=== PATIENT | male | born 2000 | race Caucasian/White ===

== ENCOUNTER 2020-08-07 17:18 | Emergency (ER) | payer SELFPAY ==
[2020-08-07 17:21] VITALS: BP 130/112; PULSE 102; RESP 16; TEMP 37; O2SAT 99; BMI 22.1
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
--- NOTE | 2020-08-07 17:51 | ECG_ITS ---
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 Measurements Intervals [place] Rate: 77 P: 59 MO: 149 QRS: 75 QRSD: 107 T: 66 QT: 348 QTc: 394 Interpretive Statements SINUS RHYTHM WITH SINUS ARRHYTHMIA POSSIBLE LEFT ATRIAL ENLARGEMENT [-0.1mV P WAVE IN V1/V2] INDETERMINATE AXIS INCOMPLETE RIGHT BUNDLE BRANCH BLOCK [90+ ms QRS DURATION, TERMINAL R IN V1/V2, 40+ ms S IN I/aVL/V4/V5/V6] Compared to ECG 10/31/2018 20:06:05 Incomplete right bundle-branch block now present Myocardial infarct finding now present Sinus tachycardia no longer present Early repolarization no longer present Electronically Signed On 08-09-2020 17:28:12 [employer] by Madhuri Santana M.D. [id number]
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
[2020-08-07 18:05] VITALS: BP 111/78; PULSE 80; RESP 22; O2SAT 97
[2020-08-07] MEDS: ketorolac 30 mg/mL INJ IVP (18:08)
[2020-08-07] MEDS: sodium chloride 0.9% 1,000 ML 999 ML IV (18:16)
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
[2020-08-07 18:28] LABS: Basophils % 0.4 %; Eosinophils # 0.1 10^3/uL (0.0-0.8); Eosinophils % 1.2 %; Hematocrit 53.1 % (42.0-52.0); Hemoglobin 18.3 g/dL (11.7-16.6); Lymphocytes # 2.3 10^3/uL (0.8-4.8); Lymphocytes % 25.3 %; Mean Corpuscular HGB Conc 34.5 g/dL (30.0-36.0); Mean Corpuscular Hemoglobin 32.8 pg (28.0-34.0); Mean Corpuscular Volume 95.2 fL (80-94); Mean Platelet Volume 10.2 fL (7.4-10.4); Monocytes # 0.5 10^3/uL (0.2-0.9); Monocytes % 5.4 %; Neutrophils # 5.87 10^3/uL (1.8-7.7); Neutrophils % 65.2 %; Nucleated Red Blood Cells % 0 %; Platelet Count 245 10^3/cmm (130-400); Red Blood Count 5.58 10^6/uL (4.1-5.3); Red Cell Distribution Width 12.5 % (12.1-15.1)
[2020-08-07 18:40] LABS: Urine Appearance Clear (CLEAR); Urine Color Straw (Yellow)
[2020-08-07 18:41] LABS: Add Urine Microscopic? YES; Bilirubin Urine Neg (Negative); Blood Urine 2+ (Negative); Glucose Urine UA Norm (Normal); Ketones Urine Negative (Negative); Leukocyte Esterase Urine Negative (Negative); Nitrate Urine Negative (Negative); Protein Urine Neg (Negative); Specific Gravity, Urine 1.005 (1.005-1.030); Urobilinogen Urine Norm (Negative); pH Urine 6 (5-7)
--- NOTE | 2020-08-07 18:44 | PC.NURSE ---
Patient tried to sit up in bed, I directed the patient to lay back down and to remain flat on the bed until he is cleared of any spinal injuries.
[2020-08-07 18:45] VITALS: BP 122/86; PULSE 73; RESP 18; O2SAT 96
[2020-08-07 18:50] LABS: Amphetamines Screen Urine Negative (Negative); Barbiturates Screen Urine Negative (Negative); Benzodiazepines Screen Urine Negative (Negative); Cocaine Screen Urine Negative (Negative); Opiate Screen Urine Negative (Negative); PCP Screen Urine Negative (Negative); THC Screen Urine Positive (Negative)
[2020-08-07 18:51] LABS: Mucus Urine TRACE /hpf; RBC Urine RARE /hpf (0-2)
[2020-08-07 18:52] LABS: Add Urine Culture? No
[2020-08-07 19:04] LABS: Alanine Aminotransferase 19 U/L (0-41); Albumin Level 4.5 g/dL (3.5-5.2); Alcohol Level 225 mg/dL (0-10); Alkaline Phosphatase 85 IU/L (40-130); Anion Gap 11.1 (5-19); Aspartate Amino Transferase 39 U/L (0-40); Blood Urea Nitrogen 6 mg/dL (6-20); Calcium 8.9 mg/dL (8.5-10.5); Carbon Dioxide 30 mmol/L (22-29); Chloride 103 mmol/L (98-107); Globulin 2.6 g/dL (1.3-4.6); Glomerular Filtration Rate 94.3 mL/min (90-130); Glucose 116 mg/dL (65-115); Osmolality Calculated 289 mOsm/kg (285-295); Potassium 4.1 mmol/L (3.5-5.1); Sodium 140 mmol/L (136-145); Total Bilirubin 0.5 mg/dL (0.15-1.2); Total Protein 7.1 g/dL (6.6-8.7)
[2020-08-07 19:24] VITALS: BP 114/75; PULSE 93; RESP 18; O2SAT 98
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
[2020-08-07 20:08] VITALS: BP 113/82; PULSE 94; RESP 18; O2SAT 96
--- NOTE | 2020-08-09 09:40 | DCPLANNER ---
regional retail sales manager had message to schedule a follow up appointment for patient with ortho. regional retail sales manager called the ortho clinic, spoke with Vivi, gave clinic patients information. regional retail sales manager was told that patients information would be printed and reviewed. Clinic will call patient with appointment information.
--- NOTE | 2020-08-10 07:36 | DCPLANNER ---
Patient has a follow up appointment scheduled for Monday, August 10, 2020 at 8:[address] Larry at [facility]. Clinic will call patient with appointment information.
--- NOTE | 2020-09-10 14:51 | DCPLANNER ---
Patient had a follow up appointment scheduled for 08.10.20 with ortho - patient did attend appointment.
== END 2020-08-07 20:10 | disposition home or self-care (01) ==
PROVIDERS: Emergency Provider Family Medicine; PCP Family Medicine
DX: S22.080A Wedge compression fracture of T11-T12 vertebra, initial encounter for closed fracture (principal); S32.010A Wedge compression fracture of first lumbar vertebra, initial encounter for closed fracture; F17.210 Nicotine dependence, cigarettes, uncomplicated; V49.9XXA Car occupant (driver) (passenger) injured in unspecified traffic accident, initial encounter
CPT/HCPCS: 12345; 70450; 70486; 72125; 72131; 74176; 80053; 80306; 80307; 81001; 85025; 93005; 96361; 96374; 99283; J1885; J7030

== ENCOUNTER → 2020-08-10 08:23 | Outpatient (BNVA) | payer SELFPAY | PROVIDERS: PCP Family Medicine; Referring Provider Family Medicine; Visit Provider Orthopaedic Surgery | DX: S32.000A Wedge compression fracture of unspecified lumbar vertebra, initial encounter for closed fracture (principal); M48.50XA Collapsed vertebra, not elsewhere classified, site unspecified, initial encounter for fracture | CPT/HCPCS: 72114 ==

== ENCOUNTER → 2020-08-24 08:45 | Outpatient (BNVA) | payer SELFPAY | PROVIDERS: PCP Family Medicine; Visit Provider Orthopaedic Surgery | DX: S32.010D Wedge compression fracture of first lumbar vertebra, subsequent encounter for fracture with routine healing (principal); X58.XXXD Exposure to other specified factors, subsequent encounter | CPT/HCPCS: 72100 ==

== ENCOUNTER → 2020-09-21 08:48 | Outpatient (BNVA) | payer SELFPAY | PROVIDERS: PCP Family Medicine; Visit Provider Orthopaedic Surgery | DX: Z47.89 Encounter for other orthopedic aftercare (principal); S32.000D Wedge compression fracture of unspecified lumbar vertebra, subsequent encounter for fracture with routine healing; X58.XXXD Exposure to other specified factors, subsequent encounter | CPT/HCPCS: 72100 ==

== ENCOUNTER → 2020-11-02 09:06 | Outpatient (BNVA) | payer SELFPAY | PROVIDERS: PCP Family Medicine; Visit Provider Orthopaedic Surgery | DX: S32.000A Wedge compression fracture of unspecified lumbar vertebra, initial encounter for closed fracture (principal); T14.8XXA Other injury of unspecified body region, initial encounter; X58.XXXA Exposure to other specified factors, initial encounter | CPT/HCPCS: 72110 ==